=== PATIENT | male | born 1960 | race Caucasian/White ===

== ENCOUNTER → 2017-03-03 | Outpatient (CLI) | payer BC ==
--- NOTE | 2017-03-03 14:02 | US ---
EXAMINATION TYPE: US kidneys/renal and bladder DATE OF EXAM: 03/03/2017 COMPARISON: NONE CLINICAL HISTORY: R31.9 hematuria. EXAM MEASUREMENTS: Right Kidney: 12.0 x 4.8 x 6.1 cm Left Kidney: 11.2 x 6.2 x 5.8 cm Right Kidney: wnl Left Kidney: wnl Bladder: indented inferiorly by enlarged prostate, 1.6 x 1.2 x 1.8cm solid mass attached to the poste rior inferior left bladder wall Bilateral Jets seen: yes There is a 1.6 x 1.2 cm solid mass in the posterior wall of the bladder. IMPRESSION: 1. NORMAL RENAL ULTRASOUND. 2. SOLID LESION ADJACENT TO THE POSTERIOR WALL OF THE BLADDER. DIRECT VISUALIZATION IS SUGGESTED.
== END | disposition home or self-care (01) ==
LOC: RADUSWWP 13:20
PROVIDERS: ATTEND Family Medicine
DX: R31.9 Hematuria, unspecified (principal)
CPT/HCPCS: 76770

== ENCOUNTER → 2017-04-03 | Outpatient (CLI) | payer BC ==
--- NOTE | 2017-04-03 10:44 | US ---
EXAMINATION TYPE: US abdomen comp/pelvis limited DATE OF EXAM: 04/03/2017 COMPARISON: 02/23/2017 CLINICAL HISTORY: R10.9 Abd Pain. Heartburn and back pain x 2 weeks, history of appendectomy EXAM MEASUREMENTS: Liver Length: 16.6 cm Gallbladder Wall: 0.2 cm CBD: 0.4 cm Spleen: 11.3 cm Right Kidney: 11.8 x 5.1 x 5.4 cm Left Kidney: 11.6 x 6.8 x 5.4 cm Pancreas: visualized portions wnl, head and tail limited by overlying midline bowel gas Liver: increased echogenicity, heterogeneous without any definite lesions seen at this time . This f inding limits evaluation for underlying hepatic masses. Gallbladder: wnl CBD: visualized portions wnl, limited by overlying bowel gas Spleen: wnl Right Kidney: wnl Left Kidney: wnl Upper IVC: wnl Abd Aorta: visualized portions wnl, limited by overlying midline bowel gas Bladder: Bilobed mass along the posterior left lateral urinary bladder wall measuring 2.5 x 2.3 x 1.4 cm, enlarged from the prior exam of 03/03/2017. Bilateral Jets Seen no IMPRESSION: 1. Enlarging urinary bladder mass. Direct visualization is again recommended. 2. Heterogenous and hyperechoic hepatic echotexture, which most commonly relates to hepatic steatosis . 3. Pancreas and abdominal aorta are only partially visualized with portions obscured by overlying bow el gas.
== END | disposition home or self-care (01) ==
LOC: RADUSWWP 09:47
PROVIDERS: ATTEND Family Medicine
DX: N32.9 Bladder disorder, unspecified (principal); K76.89 Other specified diseases of liver; R10.9 Unspecified abdominal pain
CPT/HCPCS: 76700; 76857

== ENCOUNTER 2017-04-27 16:40 | Emergency (ER) | payer BC ==
--- NOTE | 2017-04-27 15:59 | CT ---
EXAMINATION TYPE: CT abdomen pelvis w con DATE OF EXAM: 04/27/2017 COMPARISON: Ultrasound 04/03/2017 HISTORY: 57-year-old male complains of epigastric pain and new diagnosis of prostate CA. TECHNIQUE: Contiguous axial scanning of the abdomen and pelvis following administration of 100 ml Omn ipaque 300 IV contrast. Delayed images through the kidneys and coronal/sagittal reconstructions perf ormed. CT DLP: 1006.6 mGycm Automated exposure control for dose reduction was used. FINDINGS: The heart is normal size without pericardial effusion. Lung bases clear without pleural effusion. Low attenuation of the hepatic parenchyma with a more focal fat along the anterior falciform ligament . Subcentimeter hypodensity inferior right hepatic lobe too small for accurate CT characterization, p robable cyst. There is focal narrowing at the origin of the celiac axis with a large common and proper hepatic reji ry. There appears to be some mild eccentric filling defect in the proper hepatic artery. Additionally , there is an abrupt cut off of the proximal splenic artery and some patchy intraluminal enhancement within the remainder of the splenic artery, refer to axial images 24 and 25. The gastroduodenal arter y is not seen. Gallbladder, adrenal glands, kidneys, spleen with small posterior splenule, and pancreas show no tj s abnormality. No dilated small bowel, free fluid, or free air. There is moderate stool burden without pericolonic i nflammatory change. Mild left hemicolonic diverticulosis greatest in the proximal sigmoid colon. Bladder is urine distended. Marked prostatomegaly measuring 7.6 cm wide. Heterogeneous areas of enhancement are present within th e lung with gross left obturator chain lymphadenopathy with a lymph node mass measuring up to 6.3 cm AP by 4.2 cm wide by 8.6 cm craniocaudal. This has mass effect onto the left lateral bladder wall. Sm aller but suspicious 1.1 cm right iliac chain lymph node. No abnormal fluid collection in the pelvis. Bones: There appears to be a left L5 laminotomy defect. Degenerative changes mid to lower lumbar spin e. No suspicious osseous lesion seen. IMPRESSION: 1. FOCAL NARROWING AT THE ORIGIN OF THE CELIAC AXIS AT THE LEVEL OF THE DIAPHRAGMATIC ALDO WITH LARGE COMMON AND PROPER HEPATIC ARTERIES. 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 2. APPARENT ABRUPT CUT OFF OF THE PROXIMAL SPLENIC ARTERY AND PATCHY INTRALUMINAL ENHANCEMENT WITHIN THE REMAINDER OF THE VESSEL. SEGMENTAL ARTERIAL THROMBOSIS IS SUSPECTED. SIMILARLY, THE GASTRODUODENA L ARTERY IS NOT WELL SEEN AND MAY BE THROMBOSED. THERE IS ADDITIONAL ECCENTRIC THROMBUS IN THE PROPER HEPATIC ARTERY. AN ANGIOGRAPHIC EXAMINATION CAN FURTHER EVALUATE. SURGICAL CONSULTATION SHOULD BE CO NSIDERED. 3. KNOWN PROSTATE CANCER WITH MARKED PROSTATOMEGALY AND LARGE 8.6 CM METASTATIC LYMPH NODE MASS IN TH E LEFT HEMIPELVIS. SMALLER BUT SUSPICIOUS 1.1 CM RIGHT ILIAC LYMPH NODE. 4. LEFT HEMICOLONIC DIVERTICULOSIS. HEPATIC STEATOSIS.
[2017-04-27] MEDS ORDERED: SODIUM CHLORIDE 0.9% 1,000 ML IV STA (17:09)
[2017-04-27 17:50] LABS: Basophils # (A) 0.1 k/uL (0-0.2); Basophils % (A) 1 %; CH 32.1; CHCM 36.1; Eosinophils # (A) 0.1 k/uL (0-0.7); Eosinophils % (A) 1 %; HCT 40.7 % (39.0-53.0); HDW 2.85; HGB 14.1 gm/dL (13.0-17.5); Luc # (Auto) 0.11; Luc % (Auto) 2; Lymphocytes % (A) 29 %; MCHC 34.7 g/dL (31.0-37.0); MCV 89.4 fL (80.0-100.0); Mean Platelet Volume 7.3; Monocytes # (A) 0.4 k/uL (0-1.0); Monocytes % (A) 6 %; Neutrophils # (A) 4.2 k/uL (1.3-7.7); Neutrophils % (A) 61 %; RBC 4.55 m/uL (4.30-5.90); RDW 13.9 % (11.5-15.5); WBC 6.9 k/uL (3.8-10.6); WBC (Perox) 6.65
[2017-04-27 17:57] LABS: INR 1.1 (<1.2); Partial Thromboplastin Time 24.1 sec (22.0-30.0); Prothrombin Time 11.4 sec (9.0-12.0)
[2017-04-27 18:07] LABS: ALT 51 U/L (21-72); AST 25 U/L (17-59); Alkaline Phosphatase 72 U/L (38-126); Amylase 31 U/L (30-110); Anion Gap 14 mmol/L; Blood Urea Nitrogen 10 mg/dL (9-20); Calcium 10.1 mg/dL (8.4-10.2); Carbon Dioxide 20 mmol/L (22-30); Chloride 103 mmol/L (98-107); Glucose 88 mg/dL (74-99); Non-African American GFR(MDRD) >60 (>60 ml/min/1.73 sqM); Potassium 4.3 mmol/L (3.5-5.1); Sodium 137 mmol/L (137-145); Total Bilirubin 0.6 mg/dL (0.2-1.3); Total Protein 7.4 g/dL (6.3-8.2)
[2017-04-27 18:40] VITALS: RESP 16
--- NOTE | 2017-04-27 18:51 | ED ---
General Adult HPI - General Chief complaint: Abdominal Pain Time Seen by Provider: 04/27/17 16:58 Source: patient, RN notes reviewed Mode of arrival: ambulatory Limitations: no limitations - History of Present Illness Initial comments: Patient is a 57-year-old who presents emergency room today with a chief complaint of an abnormal CT. He does not that he's been experiencing some abdominal pain off and on over the last month. He states he's been recently diagnosed with prostate cancer is in the process of getting a second opinion recommended by his neurologist. He states that he has been having some abdominal discomfort worse after she eats. He states he did not bring this up to his family doctor have a outpatient CAT scan obtained. He states he was advised coming here to the emergency room afterwards. He states is currently not having any pain or symptoms. He denies any other complaints. Patient denies any recent fever, chills, shortness of breath, chest pain, back pain, vomiting, numbness or tingling, constipation or diarrhea, headaches or visual changes, or any other complaints. - Related Data Home Medications Medication Instructions Recorded Confirmed Bicalutamide [Casodex] 50 mg PO DAILY@1200 04/27/17 04/27/17 Enoxaparin [Lovenox] 100 mg SQ Q12H 04/27/17 04/27/17 Finasteride [Proscar] 5 mg PO HS 04/27/17 04/27/17 Omeprazole 40 mg PO DAILY 04/27/17 04/27/17 Sucralfate [Carafate] 1 gm PO BID 04/27/17 04/27/17 Tamsulosin HCl [Flomax] 0.4 mg PO DAILY 04/27/17 04/27/17 Allergies Allergy/AdvReac Type Severity Reaction Status Date / Time No Known Allergies Allergy Verified 04/27/17 18:03 Review of Systems ROS Statement: Those systems with pertinent positive or pertinent negative responses have been documented in the HPI. ROS Other: All systems not noted in ROS Statement are negative. Past Medical History Past Medical History: Prostate Disorder Additional Past Medical History / Comment(s): prostate CA History of Any Multi-Drug Resistant Organisms: None Reported Past Surgical History: Appendectomy, Back Surgery Past Psychological History: No Psychological Hx Reported Smoking Status: Former smoker Past Alcohol Use History: None Reported Past Drug Use History: None Reported General Exam - General Exam Comments Initial Comments: General: The patient is awake and alert, in no distress, and does not appear acutely ill. Eye: Pupils are equal, round and reactive to light, extra-ocular movements are intact. No nystagmus. There is normal conjunctiva bilaterally. No signs of icterus. Ears, nose, mouth and throat: There are moist mucous membranes and no oral lesions. Neck: The neck is supple, there is no tenderness or JVD. Cardiovascular: There is a regular rate and rhythm. No murmur, rub or gallop is appreciated. Respiratory: Lungs are clear to auscultation, respirations are non-labored, breath sounds are equal. No wheezes, stridor, rales, or rhonchi. Gastrointestinal: Soft, non-distended, non-tender abdomen without masses or organomegaly noted. There is no rebound or guarding present. No CVA tenderness. Bowel sounds are unremarkable. Musculoskeletal: Normal ROM, no tenderness. Strength 5/5. Sensation intact. Pulses equal bilaterally 2+. Neurological: A&O x 3. CN II-XII intact, There are no obvious motor or sensory deficits. Coordination appears grossly intact. Speech is normal. Skin: Skin is warm and dry and no rashes or lesions are noted. Psychiatric: Cooperative, appropriate mood & affect, normal judgment. Limitations: no limitations Course Vital Signs 04/27/17 04/27/17 16:46 18:38 Temperature 97.8 F 98 F Pulse Rate 81 73 Respiratory 18 16 Rate Blood Pressure 119/73 131/82 O2 Sat by Pulse 99 97 Oximetry Medical Decision Making - Medical Decision Making 1919: patient reexamined at this time shows no signs of distress. Patient's labs been reviewed. Patient does have gross bloody urine. History of prostate cancer. Patient is asymptomatic here in the emergency room. His abdomen soft nontender. Patient's CT of the abdomen and pelvis which was performed outpatient has been reviewed shows impression 1. Sensations of the celiac axis at the level of the diaphragmatic with large common and proper hepatic arteries. Findings are highly suggestive of the celiac artery compression syndrome. 2. Apparent abrupt cutoff of the proximal splenic artery and patchy intraluminal enhancement within the remainder of the vessel. Segmental artery thrombosis suspected similar. Case discussed in detail with general surgeon Dr Reece who recommends answer to facility with vascular surgeon. Patient is referred are available here in [place]. Patient will be transferred to [facility]. Patient is with plan states understanding. She was discussed with [facility] with Dr. Roman who will accept the patient per patient will be transferred by EMS. - Lab Data Result diagrams: 04/27/17 17:20 04/27/17 17:20 Lab Results 04/27/17 04/27/17 04/27/17 Range/Units 17:20 17:20 17:20 WBC 6.9 (3.8-10.6) k/uL RBC 4.55 (4.30-5.90) m/uL Hgb 14.1 (13.0-17.5) gm/dL Hct 40.7 (39.0-53.0) % MCV 89.4 (80.0-100.0) fL MCH 31.0 (25.0-35.0) pg MCHC 34.7 (31.0-37.0) g/dL RDW 13.9 (11.5-15.5) % Plt Count 338 (150-450) k/uL Neutrophils % 61 % Lymphocytes % 29 % Monocytes % 6 % Eosinophils % 1 % Basophils % 1 % Neutrophils # 4.2 (1.3-7.7) k/uL Lymphocytes # 2.0 (1.0-4.8) k/uL Monocytes # 0.4 (0-1.0) k/uL Eosinophils # 0.1 (0-0.7) k/uL Basophils # 0.1 (0-0.2) k/uL PT 11.4 (9.0-12.0) sec INR 1.1 (<1.2) APTT 24.1 (22.0-30.0) sec Sodium 137 (137-145) mmol/L Potassium 4.3 (3.5-5.1) mmol/L Chloride 103 (98-107) mmol/L Carbon Dioxide 20 L (22-30) mmol/L Anion Gap 14 mmol/L BUN 10 (9-20) mg/dL Creatinine 0.80 (0.66-1.25) mg/dL Est GFR (MDRD) Af Amer >60 (>60 ml/min/1.73 sqM) Est GFR (MDRD) Non-Af >60 (>60 ml/min/1.73 sqM) Glucose 88 (74-99) mg/dL Calcium 10.1 (8.4-10.2) mg/dL Total Bilirubin 0.6 (0.2-1.3) mg/dL AST 25 (17-59) U/L ALT 51 (21-72) U/L Alkaline Phosphatase 72 (38-126) U/L Total Protein 7.4 (6.3-8.2) g/dL Albumin 4.5 (3.5-5.0) g/dL Amylase 31 (30-110) U/L Lipase 48 (23-300) U/L Urine Color Urine Appearance (Clear) 04/27/17 Range/Units 18:38 WBC (3.8-10.6) k/uL RBC (4.30-5.90) m/uL Hgb (13.0-17.5) gm/dL Hct (39.0-53.0) % MCV (80.0-100.0) fL MCH (25.0-35.0) pg MCHC (31.0-37.0) g/dL RDW (11.5-15.5) % Plt Count (150-450) k/uL Neutrophils % % Lymphocytes % % Monocytes % % Eosinophils % % Basophils % % Neutrophils # (1.3-7.7) k/uL Lymphocytes # (1.0-4.8) k/uL Monocytes # (0-1.0) k/uL Eosinophils # (0-0.7) k/uL Basophils # (0-0.2) k/uL PT (9.0-12.0) sec INR (<1.2) APTT (22.0-30.0) sec Sodium (137-145) mmol/L Potassium (3.5-5.1) mmol/L Chloride (98-107) mmol/L Carbon Dioxide (22-30) mmol/L Anion Gap mmol/L BUN (9-20) mg/dL Creatinine (0.66-1.25) mg/dL Est GFR (MDRD) Af Amer (>60 ml/min/1.73 sqM) Est GFR (MDRD) Non-Af (>60 ml/min/1.73 sqM) Glucose (74-99) mg/dL Calcium (8.4-10.2) mg/dL Total Bilirubin (0.2-1.3) mg/dL AST (17-59) U/L ALT (21-72) U/L Alkaline Phosphatase (38-126) U/L Total Protein (6.3-8.2) g/dL Albumin (3.5-5.0) g/dL Amylase (30-110) U/L Lipase (23-300) U/L Urine Color Red Urine Appearance Bloody (Clear) Disposition Clinical Impression: Celiac artery compression syndrome Disposition: OTHER INSTITUTION NOT DEFINED Condition: Stable Referrals: Davi Mojica MD [Primary Care Provider] - 1-2 days Time of Disposition: 19:23 - Out of Hospital Transfer - Req. Specs Out of Hospital Transfer - Requested Specifics: Other Emergency Center ([facility])
[2017-04-27 18:59] LABS: Appearance,Urine Bloody (Clear)
[2017-04-27 19:00] LABS: UA Billing (MACRO vs. MICRO) MICRO
[2017-04-27 20:53] VITALS: BP 142/60; PULSE 78; TEMP 98.2
== END 2017-04-27 20:52 | disposition short-term general hospital (02) ==
LOC: EC 16:40
DX: I77.4 Celiac artery compression syndrome (principal); Z85.46 Personal history of malignant neoplasm of prostate; Z90.49 Acquired absence of other specified parts of digestive tract; Z87.891 Personal history of nicotine dependence; Z79.899 Other long term (current) drug therapy
CPT/HCPCS: 99285; 96360; 96361 ×2; 36415; 80053; 82150; 83690; 85025; 85610; 85730; 81001; 74177; Q9967

== ENCOUNTER → 2017-06-26 | Day surgery (SDC) | payer BC ==
[2017-06-22 11:24] VITALS: BMI 31.5
[~2017-06-26] MED LIST: LACTATED RINGERS 1,000 ML IV SCH; LIDOCAINE 1% 20 ML VIAL (10MG/ML) FOR IV START INTRADERMA ONE; LIDOCAINE 1% INJ 10MG/ML (20 ML MDV) ONE; PROPOFOL 10 MG/ML 20 ML VIAL IV ONE
[2017-06-26 13:28] VITALS: RESP 16; TEMP 98.7
--- NOTE | 2017-06-26 15:12 | P.PCN ---
Date of Procedure: 06/26/17 Procedure(s) Performed: Procedures: 1. Esophagogastroduodenoscopy and biopsy. 2. Total colonoscopy. Preoperative diagnosis: Abdominal pain and history of polyps. Postoperative diagnosis: 1. No definite hiatal hernia or obvious esophagitis or complicated reflux disease. 2. Mild antral gastritis. 3. Sigmoid diverticulosis. Preparation: HalfLytely prep. Sedation: Was provided by anesthesia. Brief clinical history: The patient is a 57-year-old male who is scheduled for this evaluation for the above reasons. The patient has been having abdominal pain since November or December and was to undergo workup in January, however, he was diagnosed with prostate cancer and that has taken his attention since that time. He has history of polyps and his last colonoscopy was in April 2012. Procedure: With the patient on his left lateral decubitus position and after informed consent and adequate sedation I passed the Olympus-GIF 160 video upper endoscope through the cricopharyngeus down the esophagus. GE junction was around 40 cm from the incisors and there was no definite hiatal hernia. The esophagus did not show any obvious esophagitis or complicated reflux disease. The endoscope was then passed into the stomach which was insufflated with air and inspected in detail including the retroflex view in the cardia. There was some mottling and erythema in the antrum but no ulcers or erosions. Pyloric channel, duodenal bulb, post bulbar area and descending duodenum appeared within normal limits. Because of his symptoms, I obtained biopsies from the duodenum, antrum and esophagus then the endoscope was withdrawn and I proceeded with the colonoscopy. Perianal area did not show any fissures or fistulas. There were no masses felt on digital rectal examination. The Olympus CFQ 160L video colonoscope was then inserted in the rectum in the usual fashion and advanced to the cecum. There was evidence of sigmoid diverticulosis with no evidence of acute diverticulitis or strictures. No polyps or tumors were seen or any obvious pathology. I retroflexed the endoscope in the rectum before the endoscope was withdrawn. The patient tolerated the procedure well. Plan: The patient was reassured. Will await pathology results. Discussed dietary measures. With his history of polyps, I recommended repeat colonoscopy in 5 years. He will follow up with you as planned.
[2017-06-26 15:18] VITALS: BP 141/87; PULSE 80
== END ==
LOC: ORWHC2ENDO 12:49
DX: Z12.11 Encounter for screening for malignant neoplasm of colon (principal); K29.50 Unspecified chronic gastritis without bleeding; K21.0 Gastro-esophageal reflux disease with esophagitis; K57.30 Diverticulosis of large intestine without perforation or abscess without bleeding; Z86.010 Personal history of colon polyps; C61 Malignant neoplasm of prostate; Z86.711 Personal history of pulmonary embolism; Z86.718 Personal history of other venous thrombosis and embolism; Z87.891 Personal history of nicotine dependence; Z79.01 Long term (current) use of anticoagulants; Z79.899 Other long term (current) drug therapy
CPT/HCPCS: 88305; 88342; 43239; J2001; J2704; G0105; 45378

== ENCOUNTER → 2017-08-21 | Outpatient (CLI) | payer BC ==
[2017-08-21 07:57] LABS: Blood Urea Nitrogen 13 mg/dL (9-20)
--- NOTE | 2017-08-21 09:40 | CT ---
EXAMINATION TYPE: CT abdomen pelvis w con DATE OF EXAM: 08/21/2017 COMPARISON: 04/27/2017 HISTORY: Prostate CA follow up CT DLP: 1318.3 mGycm CONTRAST: CT scan of the abdomen and pelvis is performed with Oral Contrast and with IV Contrast, patient injec henry with 100 mL of Omnipaque 300. FINDINGS: LUNG BASES-: No visible nodule. No infiltrate. LIVER/GB: No calcified gallstones. No space occupying hepatic lesion. Biliary tree is of normal ca liber. PANCREAS: No inflammation. No distinct mass. SPLEEN: No splenic enlargement. No lesion seen. ADRENALS: No nodule. No thickening. KIDNEYS/BLADDER: No hydronephrosis. No nephrolithiasis. No disctinct renal mass. Mild urinary blad tera wall thickening. BOWEL: Normal appendix. Normal bowel caliber. No inflammation. GENITAL ORGANS: Mild prostate gland enlargement with central glandular calcifications. LYMPH NODES: No greater than 1cm abdominal or pelvic lymph nodes are appreciated. AORTA: No significant abnormality. OSSEOUS STRUCTURES: No evidence for osseous metastases. Degenerative change lower lumbar spine. OTHER: No significant additional abnormality is seen. IMPRESSION: 1. No evidence for metastatic disease. 2. Mild urinary bladder wall thickening. 3. Prostate gland enlargement.
== END | disposition home or self-care (01) ==
LOC: RADCTMAIN 07:17
PROVIDERS: ATTEND Radiology Radiation Oncology
DX: C61 Malignant neoplasm of prostate (principal); N40.0 Benign prostatic hyperplasia without lower urinary tract symptoms; N32.89 Other specified disorders of bladder
CPT/HCPCS: 82565; 84520; 74177; 36415; Q9967

== ENCOUNTER → 2018-03-22 | Outpatient (CLI) | payer BC, OTHER ==
--- NOTE | 2018-03-22 12:57 | ECHOS ---
STRESS ECHOCARDIOGRAM DATE OF SERVICE: 03/22/2018 INDICATIONS: Chest pain. MEDICATIONS: BASELINE HEART RATE: 66 BASELINE BLOOD PRESSURE: 140/73 MAXIMUM HEART RATE: 148 MAXIMUM BLOOD PRESSURE: 160/50 85% MPHR: 136 100% MPHR: 160 METS: 8.1 MAXIMUM STAGE REACHED: II TOTAL EXERCISE TIME: 6 minutes and 43 seconds CLINICAL INFORMATION: STRESS DATA: is pretesting physical examination showed a heart rate of 66, pressure is 140/73 mmHg. Baseline EKG showed sinus mechanism. The patient exercised on the treadmill according to Pacheco protocol for a total of 6 minutes and 43 seconds and achieved 8.1 METs. Max heart rate was 148 beats per minute which is about 92% of maximum predicted heart rate. Maximum blood pressure was 160/50 mmHg. Clinically the patient did not have any symptoms of chest pain or chest discomfort during the testing or in the recovery period. The EKG showed about 0.[address] segment depression in the lateral leads. ECHOCARDIOGRAPH IMAGES: On echocardiogram images from parasternal long axis view, parasternal short axis view, apical 4 chambers and apical 2 chamber view were obtained at the baseline images, at the peak of the heart rate, as well as on recovery. The echocardiogram images showed no wall motion abnormalities concerning for ischemia. CONCLUSION: 1. Average exercise tolerance. 2. Mild EKG changes in response to exercise. 3. Normal echocardiogram in response to exercise. 4. Essentially normal stress echocardiogram for the patient. MMODL / IJN: [id number] /
== END | disposition home or self-care (01) ==
LOC: RADNMMAIN 10:27
PROVIDERS: ATTEND Family Medicine
DX: R94.31 Abnormal electrocardiogram [ECG] [EKG] (principal); R07.9 Chest pain, unspecified
CPT/HCPCS: 93351